=== PATIENT | female | born 1990 | race Asian ===

== ENCOUNTER 2018-06-14 02:45 | Inpatient (IN) | payer OTHER ==
[~2018-06-14 02:45] MED LIST: DEXTROSE 5%-LACTATED RINGERS 500 ML IV ONE
[2018-06-14] MEDS ORDERED: AMPICILLIN - 2 GM in SODIUM CHLORIDE 100 ML IVPB ONE (03:15)
[2018-06-14] MEDS ORDERED: BUTORPHANOL TARTRATE 1 MG/ML VIAL ONE ×2 (03:19)
[2018-06-14] MEDS ORDERED: PROMETHAZINE HCL 25 MG/1 ML VIAL ONE (03:19)
[2018-06-14] MEDS ORDERED: PROMETHAZINE HCL 25 MG/1 ML VIAL IVPB ONE (03:25)
[2018-06-14] MEDS ORDERED: BUTORPHANOL TARTRATE 1 MG/ML VIAL IVPB ONE (03:25)
[2018-06-14 03:27] LABS: BASO % 0.5 % (0-2.0); EOS % 0.8 % (0-4.5); HEMATOCRIT 40.4 % (32.4-45.2); HEMOGLOBIN 13.6 GM/dL (10.7-15.3); LYMPH % 22.4 % (8-40); MCH 28.3 pg (25.7-33.7); MCHC 33.6 g/dl (32.0-36.0); MEAN CELL VOLUME 84.2 fl (80-96); MEAN PLT VOLUME 10.1 fl (7.5-11.1); MONO % 7.3 % (3.8-10.2); PLATELET COUNT 250 K/MM3 (134-434); RDW 15.7 % (11.6-15.6)
[2018-06-14 03:30] VITALS: BMI 25.9
[2018-06-14 03:37] LABS: INR 0.88 (0.83-1.09)
[2018-06-14 03:40] LABS: ACTIVATED PTT 27.5 SECONDS (25.2-36.5)
[2018-06-14 03:45] LABS: ANION GAP 10 MMOL/L (8-16); BLOOD UREA NITROGEN 7 mg/dL (7-18); CALCIUM 8.7 mg/dL (8.5-10.1); CHLORIDE 106 mmol/L (98-107); CO2 22 mmol/L (21-32); CREATININE 0.6 mg/dL (0.55-1.02); GLUCOSE,RANDOM 82 mg/dL (74-106); POTASSIUM 3.9 mmol/L (3.5-5.1); SODIUM 138 mmol/L (136-145)
[2018-06-14] MEDS ORDERED: DEXTROSE 5%-LACTATED RINGERS 1,000 ML IV SCH ×2 (03:45→05:00)
[2018-06-14] MEDS ORDERED: OXYTOCIN 30 UNITS in 0.9% NS 30 UNIT/500 ML INFUS.BAG IVPB ONE (04:22)
[2018-06-14] MEDS ORDERED: LIDOCAINE HCL 1% PRESERVATIVE FREE - 30ML VIAL ONE (04:22)
--- NOTE | 2018-06-14 05:09 | HP ---
Past Medical History - Admission Chief Complaint: Labor pain History of Present Illness: 27 yo @ 40.5 weeks gestation, EDC 06/09/18, admitted for labor pain. Upon admission, she was 6cm dilated with intact membrane. History Source: Patient Limitations to Obtaining History: No Limitations - Past Medical History ...: 7 ...Para: 1 ...Term: 1 ...: 0 ...Spon : 5 ...Induced : 0 ...Multiple Gestation: 0 ...LMP: 09/02/17 ...EDC by [facility]: 06/09/18 - Past Surgical History Past Surgical History: Yes: None Hx Myomectomy: No Hx Transabdominal Cerclage: No - Smoking History Smoking history: Never smoked Have you smoked in the past 12 months: No Aproximately how many cigarettes per day: 0 - Alcohol/Substance Use Hx Alcohol Use: No History of Substance Use: reports: None - Social History ADL: Independent History of Recent Travel: No Home Medications - Allergies Allergies/Adverse Reactions: Allergies Allergy/AdvReac Type Severity Reaction Status Date / Time No Known Allergies Allergy Verified 06/14/18 03:30 - Home Medications Home Medications: Ambulatory Orders Vit/Iron Fum/Folic AC [ Tablet] 1 each PO DAILY 11/09/15 Family Disease History - Family Disease History Family History: Unremarkable Review of Systems - Review of Systems Constitutional: reports: No Symptoms Eyes: reports: No Symptoms HENT: reports: No Symptoms Neck: reports: No Symptoms Cardiovascular: reports: No Symptoms Respiratory: reports: No Symptoms Gastrointestinal: reports: No Symptoms Genitourinary: reports: Pain Breasts: reports: No Symptoms Reported Musculoskeletal: reports: No Symptoms Integumentary: reports: No Symptoms Neurological: reports: No Symptoms Endocrine: reports: No Symptoms Hematology/Lymphatic: reports: No Symptoms Psychiatric: reports: No Symptoms Pain Intensity: 7 Physical Exam - Maternity Vital Signs: Vital Signs Temperature 98.5 F 06/14/18 03:10 Pulse Rate 72 06/14/18 03:10 Respiratory Rate 18 06/14/18 03:10 Blood Pressure 133/70 06/14/18 03:10 O2 Sat by Pulse Oximetry (%) Constitutional: Yes: Well Nourished Eyes: Yes: Conjunctiva Clear HENT: Yes: Atraumatic Neck: Yes: Supple Cardiovascular: Yes: Regular Rate and Rhythm Lungs: Clear to auscultation - Abdominal Exam/OB Number of Fetuses: Single Presentation: Vertex - Vaginal Exam/OB Dilatation (cm): 6 Station: -2 - Physical Exam ...Motor Strength: WNL Psychiatric: Yes: Alert, Oriented - Labs Lab Results: CBC, BMP 06/14/18 03:10 06/14/18 03:10 Problem List - Problems (1) Pain during labor Code(s): O99.89 - OTH DISEASES AND CONDITIONS COMPL PREG/CHLDBRTH; R52 - PAIN, UNSPECIFIED Assessment/Plan Active labor Admit to L&D. Anticipate
[2018-06-14] MEDS ORDERED: METHYLERGONOVINE MALEATE 0.2 MG/1 ML AMP IM PRN (05:29)
[2018-06-14] MEDS ORDERED: BENZOCAINE 20% 57 GM BOTTLE TP PRN (05:29)
[2018-06-14] MEDS ORDERED: BISACODYL 10 MG SUPP.RECT RC PRN (05:29)
[2018-06-14] MEDS ORDERED: WITCH HAZEL 50% (TUCKS) 40 PAD/JAR PAD TP PRN (05:29)
[2018-06-14] MEDS ORDERED: BENZOCAINE 28 GM HEMORRHOIDAL OINTMENT TP PRN (05:29)
[2018-06-14] MEDS: OXYTOCIN 20 UNITS in 0.9% NS 20 UNIT/1,000 ML INFUS.BAG IV SCH ×3 (05:30→14:30)
--- NOTE | 2018-06-14 05:32 | PN ---
Delivery - Delivery Vaginal Delivery: Spontaneous Episiotomy/Laceration: None EBL (cc): 300 Delivery, Single - Feeding Plan Initial Plan: Elected not to breastfeed exclusively throughout hospitalization Remarks - Remarks Remarks: Normal spontaneous vaginal delivery of a live infant boy over intact perineum. Nose / Oropharynx suctioned @ perineum. Cord clamped and cut. Placenta expelled spontaneously intact.
[2018-06-14] MEDS: IBUPROFEN 600 MG TABLET (FP) PO PRN ×5 (05:45→22:21)
[2018-06-14] MEDS: ACETAMINOPHEN 325 MG TABLET (FP) PO PRN ×5 (05:45→22:22)
[2018-06-14] MEDS ORDERED: OXYTOCIN 20 UNITS in 0.9% NS 20 UNIT/1,000 ML INFUS.BAG IV ONE (06:46)
[2018-06-14] MEDS ORDERED: AMPICILLIN - 1 GM in SODIUM CHLORIDE 100 ML IVPB SCH (07:15)
[2018-06-14] MEDS: PRENATAL VITAMINS W/ FOLIC ACID TABLET (FP) PO SCH (10:33)
[2018-06-14] MEDS: FERROUS SO4 325 MG TABLET (FP) PO SCH ×2 (10:33→21:16)
[2018-06-15 09:03] LABS: BASO % 0.2 % (0-2.0); EOS % 0.5 % (0-4.5); HEMATOCRIT 34.7 % (32.4-45.2); HEMOGLOBIN 11.6 GM/dL (10.7-15.3); LYMPH % 17.3 % (8-40); MCH 28.6 pg (25.7-33.7); MCHC 33.4 g/dl (32.0-36.0); MEAN CELL VOLUME 85.7 fl (80-96); MEAN PLT VOLUME 10.1 fl (7.5-11.1); MONO % 4.5 % (3.8-10.2); NEUT % 77.5 % (42.8-82.8); PLATELET COUNT 206 K/MM3 (134-434); RBC 4.05 M/mm3 (3.60-5.2); RDW 16.1 % (11.6-15.6); WHITE BLOOD COUNT 13.4 K/mm3 (4.0-10.0)
[2018-06-15] MEDS ORDERED: DIPHTH,PERTUSS(ACELL),TET 0.5 ML DISP.SYRIN IM ONE (10:00)
[2018-06-15] MEDS: PRENATAL VITAMINS W/ FOLIC ACID TABLET (FP) PO SCH (10:09)
[2018-06-15] MEDS: FERROUS SO4 325 MG TABLET (FP) PO SCH ×2 (10:09→21:24)
--- NOTE | 2018-06-15 10:35 | PN ---
Post Progress Note - Subjective Subjective: 27 yo Para 2 status post vaginal delivery, seen and evaluated. Doing well. Post Day: 1 Type of Delivery: Vital Signs: Vital Signs Temperature 97.9 F 06/15/18 08:35 Pulse Rate 69 06/15/18 08:35 Respiratory Rate 20 06/15/18 08:35 Blood Pressure 116/75 06/15/18 08:35 O2 Sat by Pulse Oximetry (%) 100 06/14/18 05:45 Breast Exam: Yes: Soft Uterus: Yes: Fundus Firm Abdomen/GI: Yes: Abdomen soft, Tolerating PO Lochia: Yes: Rubra Lochia, amount: Moderate Extremities: Yes: Calves non-tender Perineum: Yes: Intact, Episiotomy Activity: Ambulating - Labs Labs: CBC WBC 13.4 K/mm3 (4.0-10.0) H 06/15/18 08:30 RBC 4.05 M/mm3 (3.60-5.2) 06/15/18 08:30 Hgb 11.6 GM/dL (10.7-15.3) 06/15/18 08:30 Hct 34.7 % (32.4-45.2) 06/15/18 08:30 MCV 85.7 fl (80-96) 06/15/18 08:30 MCH 28.6 pg (25.7-33.7) 06/15/18 08:30 MCHC 33.4 g/dl (32.0-36.0) 06/15/18 08:30 RDW 16.1 % (11.6-15.6) H 06/15/18 08:30 Plt Count 206 K/MM3 (134-434) 06/15/18 08:30 MPV 10.1 fl (7.5-11.1) 06/15/18 08:30 Absolute Neuts (auto) 10.4 K/mm3 (1.5-8.0) H 06/15/18 08:30 Neutrophils % 77.5 % (42.8-82.8) 06/15/18 08:30 Lymphocytes % 17.3 % (8-40) D 06/15/18 08:30 Monocytes % 4.5 % (3.8-10.2) 06/15/18 08:30 Eosinophils % 0.5 % (0-4.5) 06/15/18 08:30 Basophils % 0.2 % (0-2.0) 06/15/18 08:30 Nucleated RBC % 0 % (0-0) 06/15/18 08:30 Problem List - Problems (1) Pain during labor Code(s): O99.89 - OTH DISEASES AND CONDITIONS COMPL PREG/CHLDBRTH; R52 - PAIN, UNSPECIFIED Assessment/Plan Status post Stable Continue routine care
[2018-06-15] MEDS: ACETAMINOPHEN 325 MG TABLET (FP) PO PRN ×2 (14:49→19:04)
[2018-06-15] MEDS: IBUPROFEN 600 MG TABLET (FP) PO PRN ×2 (14:49→19:05)
[2018-06-15] MEDS ORDERED: SENNOSIDES/DOCUSATE COMBO (SENNA PLUS) TABLET (UD) PO PRN (22:00)
[2018-06-16] MEDS: ACETAMINOPHEN 325 MG TABLET (FP) PO PRN ×2 (05:42→10:57)
[2018-06-16] MEDS: IBUPROFEN 600 MG TABLET (FP) PO PRN ×2 (05:42→10:57)
--- NOTE | 2018-06-16 08:24 | DS ---
Physical Exam-MACHINE DESIGN ENGINEER Vital Signs: Vital Signs Temperature 97.9 F 06/15/18 21:00 Pulse Rate 70 06/15/18 21:00 Respiratory Rate 20 06/15/18 21:00 Blood Pressure 106/70 06/15/18 21:00 O2 Sat by Pulse Oximetry (%) 100 06/14/18 05:45 Constitutional: Yes: Well Nourished, No Distress HENT: Yes: WNL Neck: Yes: WNL Respiratory: Yes: WNL Gastrointestinal: Yes: WNL, Normal Bowel Sounds ....Post : Yes: Uterus firm, Moderate lochia serosa Musculoskeletal: Yes: WNL Extremities: Yes: WNL Edema: No Neurological: Yes: WNL, Alert, Oriented Labs: CBC, BMP 06/15/18 08:30 06/14/18 03:10 Delivery - Delivery Vaginal Delivery: Spontaneous Episiotomy/Laceration: None EBL (cc): 300 Delivery, Single - Stages of Labor Date 1st Stage Initiatied: 06/14/18 Time 1st Stage Initiated: 01:30 Date 2nd Stage Initiated: 06/14/18 Time 2nd Stage Initiated: 05:20 Date of Delivery: 06/14/18 Time of Delivery: 05:24 Time Placenta Delivered: 05:25 - 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 Gender: Male Weight: 6 lb 12.9 oz Position: Left, OA Total Hours ROM (Hrs/Mins): 30min - 1 Minute Total Score: 9 5 Minutes Total Score: 9 - [place] Feeding Plan Initial Plan: Elected not to breastfeed exclusively throughout hospitalization Discharge Summary Reason For Visit: LABOR Current Active Problems Pain during labor (Acute) Procedures: Principal: Normal vaginal delivery Hospital Course: Unremarkable Condition: Good - Instructions Diet, Activity, Other Instructions: Physical activity Resume your normal everyday activity as tolerated no heavy lifting or exercise until seen by your surgeon. You may walk unlimited terrell of and climb stairs. You may resume driving the car when you feel safe and comfortable behind the wheel. No sexual activity as instructed. Wound care If you have a bandage, leave it on, and keep dry for 48-72 hours. After that time discard the outer bandage. If they are tapes on the skin under the out of bandage leave them in place. They will peel off in the next 7 to 10 days. Do Not Peel them off. You may shower the day after surgery. If there are tapes present on the skin, you may shower over them. Diet There are no dietary restrictions. Eat healthy, high-fiber foods. Drink 6 to 8 glasses of liquid each day. This will assist in keeping your bowels are regular. Pain management You may take Tylenol or acetaminophen or Ibuprofen (for example, Motrin, Advil etc.) from my pain prescription medication is ordered should be taken as prescribed for moderate to severe pain. Call MD for any of the following: Severe pain not relieved by medication Fever of 101 or higher Excessive bleeding or drainage on dressing Inability to urinate Disposition: HOME - Home Medications Comprehensive Discharge Medication List: Ambulatory Orders Vit/Iron Fum/Folic AC [ Tablet] 1 each PO DAILY 11/09/15 Ibuprofen [Motrin -] 600 mg PO TID #21 tablet 06/15/18
[2018-06-16] MEDS: PRENATAL VITAMINS W/ FOLIC ACID TABLET (FP) PO SCH (10:58)
[2018-06-16] MEDS: FERROUS SO4 325 MG TABLET (FP) PO SCH (10:58)
[2018-06-16 12:50] VITALS: BP 112/61; PULSE 73; TEMP 98.6
== END 2018-06-16 13:05 | disposition home or self-care (01) | DRG 560 ==
LOC: JLDR 02:45 → J3W 09:12
PROVIDERS: ADMIT Obstetrics & Gynecology; ATTEND Obstetrics & Gynecology
PROC: 10E0XZZ Delivery of Products of Conception, External Approach (ICD-10-PCS; principal; 2018-06-14)
DX: O48.0 Post-term pregnancy (principal); Z3A.40 40 weeks gestation of pregnancy; Z37.0 Single live birth
CPT/HCPCS: 36415; 59409; 71046-TC-FY; 80048; 85025; 85610; 85730; 86593; 86850; 86900; 86901; 87389; 90715

== ENCOUNTER 2023-03-20 20:20 | Emergency (ER) | payer OTHER ==
[2023-03-20 20:26] VITALS: BP 101/56; PULSE 89; RESP 18; TEMP 98; BMI 26.5
[2023-03-20] MEDS ORDERED: ACETAMINOPHEN 325 MG TABLET (FP) PO ONE (20:50)
[2023-03-20] MEDS ORDERED: ACETAMINOPHEN 325 MG TABLET (FP) ONE (20:54)
== END 2023-03-20 21:52 | disposition home or self-care (01) ==
LOC: JERFT 20:20
PROC: 2W3QX1Z Immobilization of Right Lower Leg using Splint (ICD-10-PCS; principal; 2023-03-20)
DX: O9A.213 Injury, poisoning and certain other consequences of external causes complicating pregnancy, third trimester (principal); S93.401A Sprain of unspecified ligament of right ankle, initial encounter; O26.893 Other specified pregnancy related conditions, third trimester; M79.661 Pain in right lower leg; R22.41 Localized swelling, mass and lump, right lower limb; W20.8XXA Other cause of strike by thrown, projected or falling object, initial encounter; Z3A.31 31 weeks gestation of pregnancy
CPT/HCPCS: 73590-TC-RT-FY; 73610-TC-RT-FY; 99283-25

== ENCOUNTER 2023-05-16 04:00 | Inpatient (IN) | payer OTHER ==
[2023-05-16] MEDS ORDERED: AMPICILLIN - 2 GM in SODIUM CHLORIDE 100 ML IVPB SCH (04:30)
[2023-05-16] MEDS ORDERED: DEXTROSE 5%-LACTATED RINGERS 1,000 ML IV SCH (04:30)
[2023-05-16] MEDS ORDERED: AMPICILLIN SODIUM 2 GM VIAL ONE (04:40)
[2023-05-16] MEDS ORDERED: SODIUM CHLORIDE 100 ML IVPB ONE (04:40)
[2023-05-16] MEDS ORDERED: BUTORPHANOL TARTRATE 2 MG/ML VIAL IVPB ONE (05:00)
[2023-05-16] MEDS ORDERED: PROMETHAZINE HCL 25 MG/1 ML VIAL IVPB SCH (05:00)
[2023-05-16] MEDS ORDERED: BUTORPHANOL TARTRATE 1 MG/ML VIAL ONE (05:17)
[2023-05-16] MEDS ORDERED: PROMETHAZINE HCL 25 MG/1 ML VIAL ONE (05:17)
[2023-05-16 05:38] LABS: INR 0.95 (0.83-1.09)
[2023-05-16 05:41] LABS: ACTIVATED PTT 26.2 SECONDS (25.2-36.5)
[2023-05-16 05:42] LABS: POTASSIUM 3.6 mmol/L (3.5-5.1)
[2023-05-16 05:43] LABS: CALCIUM 7.9 mg/dL (8.5-10.1)
[2023-05-16 05:45] LABS: BASO % 0.3 % (0-2.0); EOS % 0.9 % (0-4.5); HEMATOCRIT 30.1 % (32.4-45.2); HEMOGLOBIN 10.4 GM/dL (10.7-15.3); LYMPH % 19.5 % (8-40); MCH 28.7 pg (25.7-33.7); MCHC 34.6 g/dl (32.0-36.0); MEAN CELL VOLUME 82.8 fl (80-96); MEAN PLT VOLUME 10.1 fl (7.5-11.1); MONO % 7.5 % (3.8-10.2); NEUT % 71.8 % (42.8-82.8); PLATELET COUNT 218 10^3/uL (134-434); RBC 3.63 M/mm3 (3.60-5.2); RDW 13.6 % (11.6-15.6); WHITE BLOOD COUNT 9.1 K/mm3 (4.0-10.0)
[2023-05-16 05:47] LABS: CREATININE 0.5 mg/dL (0.55-1.3)
[2023-05-16 06:15] VITALS: BMI 27.1
[2023-05-16] MEDS ORDERED: BUTORPHANOL TARTRATE 1 MG/ML VIAL IVPB PRN (06:37)
[2023-05-16] MEDS ORDERED: ELECTROLYTE-148 SOLN 1,000 ML IV SCH ×2 (06:45→07:00)
[2023-05-16] MEDS ORDERED: LIDOCAINE HCL 1% PRESERVATIVE FREE - 30ML VIAL ONE (07:51)
[2023-05-16] MEDS ORDERED: OXYTOCIN 20 UNITS in 0.9% NS 20 UNIT/1,000 ML INFUS.BAG IV ONE ×3 (07:51→10:42)
[2023-05-16] MEDS: OXYTOCIN 20 UNITS in 0.9% NS 20 UNIT/1,000 ML INFUS.BAG IV SCH ×2 (08:15→10:05)
[2023-05-16] MEDS ORDERED: METHYLERGONOVINE MALEATE 0.2 MG/1 ML AMP IM PRN (08:22)
[2023-05-16] MEDS ORDERED: BENZOCAINE 20% 57 GM BOTTLE TP PRN (08:22)
[2023-05-16] MEDS ORDERED: WITCH HAZEL 50% (TUCKS) 40 PAD/JAR PAD TP PRN (08:22)
[2023-05-16] MEDS ORDERED: BENZOCAINE 28 GM HEMORRHOIDAL OINTMENT TP PRN (08:22)
[2023-05-16] MEDS ORDERED: BISACODYL 10 MG SUPP.RECT RC PRN (08:22)
[2023-05-16] MEDS ORDERED: BENZOCAINE 28 GM HEMORRHOIDAL OINTMENT RC PRN (08:25)
[2023-05-16] MEDS: oxyCODONE HCL 5 MG TABLET PO PRN (08:30)
[2023-05-16 08:59] LABS: CORD BASE EXCESS -6.3 mmol/L (0-2); CORD HCO3 21.5 mmHg (20-29); CORD PCO2 51.1 mmHg (30-78); CORD pH 7.242 (7.14-7.44)
[2023-05-16 09:03] LABS: CORD BASE EXCESS -4.9 mmol/L (0-2); CORD HCO3 20.8 mmHg (20-29); CORD PCO2 40.7 mmHg (30-78); CORD pH 7.326 (7.14-7.44)
[2023-05-16] MEDS ORDERED: ACETAMINOPHEN 325 MG TABLET (FP) ONE (10:24)
[2023-05-16] MEDS: ACETAMINOPHEN 325 MG TABLET (FP) PO PRN (10:25)
[2023-05-16] MEDS: FERROUS SO4 325 MG TABLET (FP) PO SCH ×2 (12:12→18:30)
[2023-05-16] MEDS: IBUPROFEN 600 MG TABLET (FP) PO PRN ×2 (12:12→21:04)
[2023-05-16] MEDS: PRENATAL VITAMINS W/ FOLIC ACID TABLET (FP) PO SCH (12:12)
[2023-05-16] MEDS: AMPICILLIN - 1 GM in SODIUM CHLORIDE 100 ML IVPB SCH (12:59)
[2023-05-17] MEDS: oxyCODONE HCL 5 MG TABLET PO PRN (02:21)
[2023-05-17] MEDS: IBUPROFEN 600 MG TABLET (FP) PO PRN ×2 (05:52→15:22)
[2023-05-17 08:27] LABS: BASO % 0.2 % (0-2.0); HEMOGLOBIN 9.5 GM/dL (10.7-15.3); LYMPH % 15.3 % (8-40); MCH 28.1 pg (25.7-33.7); MEAN CELL VOLUME 82.6 fl (80-96); MEAN PLT VOLUME 9.4 fl (7.5-11.1); MONO % 6.9 % (3.8-10.2); NEUT % 76.6 % (42.8-82.8); PLATELET COUNT 192 10^3/uL (134-434); RBC 3.39 M/mm3 (3.60-5.2); RDW 13.7 % (11.6-15.6)
[2023-05-17 10:52] VITALS: RESP 16
[2023-05-17] MEDS: ACETAMINOPHEN 325 MG TABLET (FP) PO PRN ×2 (18:17→22:08)
[2023-05-17] MEDS ORDERED: SENNOSIDES/DOCUSATE COMBO (SENNA PLUS) TABLET (UD) PO PRN (22:00)
[2023-05-18] MEDS: IBUPROFEN 600 MG TABLET (FP) PO PRN ×2 (01:42→08:17)
[2023-05-18] MEDS: PRENATAL VITAMINS W/ FOLIC ACID TABLET (FP) PO SCH (07:01)
[2023-05-18] MEDS: FERROUS SO4 325 MG TABLET (FP) PO SCH (07:01)
[2023-05-18 07:38] LABS: POC NITRAZINE POS
[2023-05-18] MEDS ORDERED: FERROUS SO4 325 MG TABLET (FP) PO SCH (08:00)
[2023-05-18] MEDS ORDERED: PRENATAL VITAMINS W/ FOLIC ACID TABLET (FP) PO SCH (10:00)
[2023-05-18 10:03] VITALS: BP 105/60; PULSE 79; TEMP 97.7
== END 2023-05-18 13:10 | disposition home or self-care (01) | DRG 560 ==
LOC: JLDR 04:00 → J3W 11:00
PROVIDERS: ADMIT Obstetrics & Gynecology; ATTEND Obstetrics & Gynecology
PROC: 10E0XZZ Delivery of Products of Conception, External Approach (ICD-10-PCS; principal; 2023-05-16)
DX: O99.02 Anemia complicating childbirth (principal); D64.9 Anemia, unspecified; O99.824 Streptococcus B carrier state complicating childbirth; Z3A.39 39 weeks gestation of pregnancy; Z37.0 Single live birth
CPT/HCPCS: 36415; 36600; 59025; 80048; 82803; 83986-QW; 85025; 85610; 85730; 86780; 86850; 86900; 86901; G0463-25

== ENCOUNTER 2024-07-13 13:48 | Emergency (ER) | payer OTHER ==
[2024-07-13 13:53] VITALS: BP 109/73; PULSE 70; RESP 18; TEMP 98.2; BMI 23.0
[2024-07-13] MEDS: FLUORESCEIN NA 1 EA STRIP OS ONE (15:32)
[2024-07-13] MEDS: TETRACAINE 0.5% HCL 0.6ML DROPPER.BOTTLE OS ONE (15:33)
== END 2024-07-13 16:35 | disposition home or self-care (01) ==
LOC: JERFT 13:48
DX: S05.02XA Injury of conjunctiva and corneal abrasion without foreign body, left eye, initial encounter (principal); W22.8XXA Striking against or struck by other objects, initial encounter
CPT/HCPCS: 99283-25